=== PATIENT | female | born 1945 | race Caucasian/White ===

== ENCOUNTER 2016-09-19 21:43 | Observation (INO) | payer BC, OTHER ==
[~2016-09-19] VITALS: Ht 157.5 cm; Wt 98.6 kg
[~2016-09-19 21:43] MED LIST: ADVAIR 500/501 DISK IH; ALBUTEROL SULF8.5 GM IH; Advair 500/50 Diskus IH; CEFTIN250 MG PO; DULERA 200 MCG/13 GM IH; Flagyl PO; MULTIPLE VITAM1 EAC1 PO; NEURONTIN100 MG PO; PROAIR HFA8.5 GM IH; QUESTRAN PACKET4 GM PO; Questran PO; SILVADENE20 GM TP; TYLENOL WITH C1 EACH PO; VICODIN 5-3001 EACH PO; ZITHROMAX250 MG PO
[2016-09-19 22:14] LABS: HEMATOCRIT 36.9 % (36.0-46.0); MCH 23.8 PG (29.0-34.0); MCHC 31.4 G/DL (30.0-36.0); MCV 75.6 FL (83-99); MEAN PLAT.VOLUME 8.8 uM^3 (9.5-12.4); PLATELET COUNT 307 K/uL (156-360); RBC DIS.WIDTH-CV 15.3 % (11.8-14.6); RBC DIS.WIDTH-SD 41.8 % (39-53); RED BLOOD COUNT 4.88 M/uL (3.80-5.20); WHITE BLOOD COUNT 7.6 K/uL (4.1-10.2)
[2016-09-19 22:22] LABS: CHLORIDE 103 mEq/L (99-109); POTASSIUM 3.7 mEq/L (3.7-5.4); SODIUM 135 mEq/L (136-147)
[2016-09-19 22:24] LABS: GLUCOSE 82 mg/dL (70-99)
[2016-09-19 22:25] LABS: ANION GAP 11 MEQ/L (2-14)
[2016-09-19 22:28] LABS: GFR ESTIMATE (CALCULATED) > 59 mL/min/
[2016-09-19 22:29] LABS: UREA NITROGEN (BUN) 14 mg/dL (9-23)
[2016-09-19 22:30] LABS: D-DIMER ELISA 2.68 mg/L FEU (< 0.57)
[2016-09-19 22:36] LABS: TROP-I INTERPRETATION NEGATIVE; TROPONIN-I < 0.01 ng/mL (0.0-0.30)
[2016-09-19] MEDS ORDERED: PROAIR HFA8.5 GM IH (23:46)
[2016-09-19] MEDS ORDERED: DULERA 200 MCG/13 GM IH (23:46)
[2016-09-20] LABS: ADD MIUA? YES; BILIRUBIN NEGATIVE; BLOOD NEGATIVE; COLOR YELLOW ((YELLOW)); GLUCOSE (STRIP) NEGATIVE; KETONES NEGATIVE; LEUKOCYTES MODERATE; NITRITE NEGATIVE; PROTEIN (STRIP) NEGATIVE; UROBILINOGEN 0.2 MG/DL (0.2-1.0)
[2016-09-20 00:15] LABS: BACTERIA NONE SEEN /HPF; EPITHELIAL CELLS RARE /HPF; MUCUS TRACE /LPF; RED BLOOD CELLS 0-5 /HPF (0-5); UCUL ADDED? NO
[2016-09-20 00:27] LABS: SPECIFIC GRAVITY 1.071 (1.000-1.030)
[2016-09-20 01:55] VITALS: BP 109/55
[2016-09-20 05:45] LABS: TROP-I INTERPRETATION NEGATIVE; TROPONIN-I < 0.01 ng/mL (0.0-0.30)
[2016-09-20 05:53] LABS: HEMATOCRIT 32.7 % (36.0-46.0); MCH 23.9 PG (29.0-34.0); MCHC 31.2 G/DL (30.0-36.0); MCV 76.6 FL (83-99); MEAN PLAT.VOLUME 8.7 uM^3 (9.5-12.4); PLATELET COUNT 247 K/uL (156-360); RBC DIS.WIDTH-CV 15.2 % (11.8-14.6); RBC DIS.WIDTH-SD 42.3 % (39-53); RED BLOOD COUNT 4.27 M/uL (3.80-5.20); WHITE BLOOD COUNT 6.4 K/uL (4.1-10.2)
[2016-09-20 05:59] LABS: ALKALINE PHOSPHATASE 137 IU/L (3-129); ANION GAP 8 MEQ/L (2-14); CHLORIDE 103 MEQ/L (99-109); GFR ESTIMATE (CALCULATED) > 59 mL/min/; GLUCOSE 91 mg/dL (70-99); POTASSIUM 3.7 MEQ/L (3.7-5.4); SAMPLE HEMOLYSIS CHECK 0; SAMPLE ICTERIC CHECK 0; SAMPLE LIPEMIA CHECK 0; SODIUM 135 MEQ/L (136-147); TOTAL BILIRUBIN 0.4 MG/DL (0.0-1.0); UREA NITROGEN (BUN) 14 mg/dL (9-23)
[2016-09-20 06:50] LABS: IRON 33 MCG/DL (35-150)
[2016-09-20 07:58] LABS: FERRITIN 172 NG/ML (10-291)
[2016-09-20 09:00] VITALS: BP 115/56
[2016-09-20 11:30] VITALS: BP 118/64
[2016-09-20 11:53] LABS: TROP-I INTERPRETATION NEGATIVE; TROPONIN-I < 0.01 ng/mL (0.0-0.30)
[2016-09-20] MEDS ORDERED: ASPIR-LOW81 MG PO (14:46)
== END 2016-09-20 16:02 | disposition home or self-care (01) ==
LOC: EME 21:43 → EDOF 09-20 00:36 → 5WEST 09-20 01:32
PROVIDERS: Emergency Medicine; Internal Medicine
DX: R07.89 Other chest pain (principal); N39.0 Urinary tract infection, site not specified; I71.4 Abdominal aortic aneurysm, without rupture; R59.0 Localized enlarged lymph nodes; I71.2 Thoracic aortic aneurysm, without rupture; D50.9 Iron deficiency anemia, unspecified; J45.909 Unspecified asthma, uncomplicated; Z90.12 Acquired absence of left breast and nipple; Z85.3 Personal history of malignant neoplasm of breast
CPT/HCPCS: 71020; 71275; 80048; 80053; 81003; 82728; 83540; 84443; 84466; 84484; 85027; 85379; 93005; 99202; 99281; 99285; G0378; J0696; J1644; J7030; J7050

== ENCOUNTER 2016-10-04 22:03 | Emergency (ER) | payer BC, OTHER ==
[~2016-10-04] VITALS: Ht 160 cm; Wt 98.0 kg
[~2016-10-04 22:03] MED LIST changes: +ASPIR-LOW81 MG PO
[2016-10-04 23:11] LABS: CHLORIDE 103 mEq/L (99-109); HEMATOCRIT 34.7 % (36.0-46.0); MCH 23.1 PG (29.0-34.0); MCHC 30.8 G/DL (30.0-36.0); MCV 74.9 FL (83-99); PLATELET COUNT 258 K/uL (156-360); POTASSIUM 4.1 mEq/L (3.7-5.4); RBC DIS.WIDTH-SD 43.2 % (39-53); RED BLOOD COUNT 4.63 M/uL (3.80-5.20); SODIUM 136 mEq/L (136-147); WHITE BLOOD COUNT 6.5 K/uL (4.1-10.2)
[2016-10-04 23:13] LABS: GLUCOSE 110 mg/dL (70-99)
[2016-10-04 23:14] LABS: ANION GAP 11 MEQ/L (2-14)
[2016-10-04 23:17] LABS: GFR ESTIMATE (CALCULATED) > 59 mL/min/; UREA NITROGEN (BUN) 16 mg/dL (9-23)
[2016-10-04 23:23] LABS: TROP-I INTERPRETATION NEGATIVE; TROPONIN-I < 0.01 ng/mL (0.0-0.30)
[2016-10-05 01:55] LABS: ADD MIUA? YES; BILIRUBIN NEGATIVE; BLOOD NEGATIVE; COLOR AMBER ((YELLOW)); GLUCOSE (STRIP) NEGATIVE; KETONES 5; LEUKOCYTES TRACE; NITRITE NEGATIVE; PROTEIN (STRIP) 30; SPECIFIC GRAVITY 1.019 (1.000-1.030); UROBILINOGEN 0.2 MG/DL (0.2-1.0)
[2016-10-05 02:36] LABS: AMORPHOUS PHOSPHATE CRYSTALS 3+; BACTERIA NONE SEEN /HPF; CASTS NONE SEEN /LPF; CRYSTALS PRESENT; EPITHELIAL CELLS RARE /HPF; MUCUS NONE SEEN /LPF; RED BLOOD CELLS RARE /HPF (0-5); UCUL ADDED? NO; WHITE BLOOD CELLS 0-5 /HPF (0-5)
[2016-10-05] MEDS ORDERED: PERCOCET 5/31 TABLET PO (04:03)
[2016-10-05 04:24] VITALS: BP 109/57
[2016-10-06] MEDS ORDERED: ALFALFA1 EACH PO (11:16)
[2016-10-06] MEDS ORDERED: DULERA 200 MCG/13 GM IH (11:16)
[2016-10-06] MEDS ORDERED: DAILY VALUE1 EACH PO (11:16)
[2016-10-06] MEDS ORDERED: VITAMIN E400 UNIT PO (11:17)
[2016-10-06] MEDS ORDERED: RED YEAST RICE600 MG PO (11:17)
[2016-10-06] MEDS ORDERED: TRAMADOL HCL50 MG PO (11:17)
== END 2016-10-05 04:25 | disposition home or self-care (01) ==
LOC: EME 22:03
PROVIDERS: Emergency Medicine
DX: M54.9 Dorsalgia, unspecified (principal); R06.00 Dyspnea, unspecified
CPT/HCPCS: 71020; 74176; 80048; 81003; 83605; 84484; 85027; 87040; 93005; 94640; 99281; 99285; J3010; J7050

== ENCOUNTER → 2016-10-09 | Outpatient (CLI) | payer BC, OTHER ==
[~2016-10-09] MED LIST changes: +ALFALFA1 EACH PO; +DAILY VALUE1 EACH PO; +MOTRIN800 MG PO; +PERCOCET 5/31 TABLET PO; +RED YEAST RICE600 MG PO; +TRAMADOL HCL50 MG PO; +VITAMIN E400 UNIT PO
[2016-10-09 08:43] LABS: INTER. NORMALIZED RATIO 1.1; PROTHROMBIN TIME 11.7 (9.2-11.2); PTT 41.5 (25-32)
[2016-10-13 10:41] LABS: Flow Clinical Information NOT PROVIDED (()); Flow Number of Markers 22 (()); Flow Spec Viability 54 % (()); Flow Specimen Type LYMPH NODE (())
== END | disposition home or self-care (01) ==
LOC: OPR 07:58 → EDSTATUS 08:00
PROVIDERS: Radiology Diagnostic Radiology
DX: D48.7 Neoplasm of uncertain behavior of other specified sites (principal); C50.919 Malignant neoplasm of unspecified site of unspecified female breast; J45.909 Unspecified asthma, uncomplicated; Z82.49 Family history of ischemic heart disease and other diseases of the circulatory system; Z80.1 Family history of malignant neoplasm of trachea, bronchus and lung
CPT/HCPCS: 77012; 85610; 85730; 88184 90; 88185 90; 88189 90; 88305; 88341 TC; 88342 TC; J3010

== ENCOUNTER 2016-10-20 15:17 | Inpatient (IN) | payer BC, OTHER ==
[~2016-10-20] VITALS: Ht 157.5 cm; Wt 96.9 kg
[2016-10-20 15:59] LABS: EOSINOPHIL (%) 0 % (0-5); HEMATOCRIT 30.9 % (36.0-46.0); IMMATURE GRANULOCYTE (%) 0.5 % (0.0-0.7); INSTRUMENT ABS NEUTROPHIL CT 4.3 K/uL; LYMPHOCYTE COUNT 0.9 K/uL (1.0-2.8); MCH 22.8 PG (29.0-34.0); MCHC 30.4 G/DL (30.0-36.0); MCV 74.8 FL (83-99); MEAN PLAT.VOLUME 8.5 uM^3 (9.5-12.4); MONOCYTE (%) 16.7 % (3-12); NEUTROPHIL (%) 68.8 % (45-76); NEUTROPHIL COUNT 4.3 K/uL (1.8-6.4); PLATELET COUNT 298 K/uL (156-360); RBC DIS.WIDTH-CV 17.2 % (11.8-14.6); RBC DIS.WIDTH-SD 46.1 % (39-53); RED BLOOD COUNT 4.13 M/uL (3.80-5.20); WHITE BLOOD COUNT 6.2 K/uL (4.1-10.2)
[2016-10-20 16:00] LABS: CHLORIDE 99 mEq/L (99-109); POTASSIUM 3.9 mEq/L (3.7-5.4); SODIUM 132 mEq/L (136-147)
[2016-10-20 16:02] LABS: GLUCOSE 98 mg/dL (70-99)
[2016-10-20 16:03] LABS: ANION GAP 11 MEQ/L (2-14)
[2016-10-20 16:06] LABS: GFR ESTIMATE (CALCULATED) > 59 mL/min/
[2016-10-20 16:07] LABS: UREA NITROGEN (BUN) 12 mg/dL (9-23)
[2016-10-20 16:09] LABS: TROP-I INTERPRETATION NEGATIVE; TROPONIN-I < 0.01 ng/mL (0.0-0.30)
[2016-10-20] MEDS ORDERED: TRAMADOL HCL50 MG PO (18:47)
[2016-10-20 22:31] VITALS: BP 127/69
[2016-10-21 03:06] VITALS: BP 120/65
[2016-10-21 05:59] LABS: HEMATOCRIT 30.9 % (36.0-46.0); MCH 22.8 PG (29.0-34.0); MCHC 30.1 G/DL (30.0-36.0); MCV 75.7 FL (83-99); MEAN PLAT.VOLUME 8.9 uM^3 (9.5-12.4); PLATELET COUNT 218 K/uL (156-360); RBC DIS.WIDTH-CV 17.1 % (11.8-14.6); RBC DIS.WIDTH-SD 45.9 % (39-53); RED BLOOD COUNT 4.08 M/uL (3.80-5.20)
[2016-10-21 06:01] LABS: CHLORIDE 102 mEq/L (99-109); POTASSIUM 4.3 mEq/L (3.7-5.4); SODIUM 137 mEq/L (136-147)
[2016-10-21 06:04] LABS: ANION GAP 10 MEQ/L (2-14)
[2016-10-21 06:06] LABS: GFR ESTIMATE (CALCULATED) > 59 mL/min/
[2016-10-21 06:07] LABS: UREA NITROGEN (BUN) 11 mg/dL (9-23)
[2016-10-21 06:21] LABS: GLUCOSE 217 mg/dL (70-99)
[2016-10-21 15:41] VITALS: BP 121/61
[2016-10-21 17:38] VITALS: BP 149/67
[2016-10-21 19:15] VITALS: BP 120/57
[2016-10-21 23:14] VITALS: BP 105/58
[2016-10-22 06:42] LABS: EOSINOPHIL (%) 0 % (0-5); HEMATOCRIT 28.9 % (36.0-46.0); IMMATURE GRANULOCYTE (%) 0.5 % (0.0-0.7); IMMATURE GRANULOCYTE COUNT 0.1 K/uL; INSTRUMENT ABS NEUTROPHIL CT 8.3 K/uL; LYMPHOCYTE COUNT 0.5 K/uL (1.0-2.8); MCHC 30.1 G/DL (30.0-36.0); MCV 76.5 FL (83-99); MONOCYTE (%) 8.1 % (3-12); MONOCYTE COUNT 0.8 K/uL (0-0.8); NEUTROPHIL (%) 86.1 % (45-76); NEUTROPHIL COUNT 8.3 K/uL (1.8-6.4); PLATELET COUNT 255 K/uL (156-360); RBC DIS.WIDTH-CV 17.2 % (11.8-14.6); RBC DIS.WIDTH-SD 47.3 % (39-53); RED BLOOD COUNT 3.78 M/uL (3.80-5.20); WHITE BLOOD COUNT 9.6 K/uL (4.1-10.2)
[2016-10-22 07:05] LABS: ALKALINE PHOSPHATASE 220 IU/L (3-129); ANION GAP 11 MEQ/L (2-14); CHLORIDE 104 MEQ/L (99-109); GFR ESTIMATE (CALCULATED) > 59 mL/min/; GLUCOSE 131 mg/dL (70-99); POTASSIUM 4.1 MEQ/L (3.7-5.4); SAMPLE HEMOLYSIS CHECK 0; SAMPLE ICTERIC CHECK 0; SAMPLE LIPEMIA CHECK 0; SODIUM 141 MEQ/L (136-147); TOTAL BILIRUBIN 0.5 MG/DL (0.0-1.0); UREA NITROGEN (BUN) 15 mg/dL (9-23)
[2016-10-22 07:55] VITALS: BP 113/55
[2016-10-22] MEDS ORDERED: LIDOCAINE700 MG TD (08:34)
[2016-10-22] MEDS ORDERED: AZITHROMYCIN500 M1 PO (08:34)
[2016-10-22] MEDS ORDERED: FERROUS SULFAT325 MG PO (08:35)
[2016-10-22] MEDS ORDERED: Vitamin-E PO (08:35)
[2016-10-22] MEDS ORDERED: MONTELUKAST SOD10 MG PO (08:35)
[2016-10-22] MEDS ORDERED: PREDNISONE10 MG PO (08:36)
== END 2016-10-22 10:20 | disposition home or self-care (01) | DRG 202 ==
LOC: EME 15:17 → EDOF 18:19 → 5EAST 18:19
PROVIDERS: Emergency Medicine; Hospitalist; Internal Medicine
DX: J45.31 Mild persistent asthma with (acute) exacerbation (principal); C81.90 Hodgkin lymphoma, unspecified, unspecified site; D50.9 Iron deficiency anemia, unspecified; R09.02 Hypoxemia; J44.1 Chronic obstructive pulmonary disease with (acute) exacerbation; Z85.3 Personal history of malignant neoplasm of breast; Z90.10 Acquired absence of unspecified breast and nipple; M54.9 Dorsalgia, unspecified; R61 Generalized hyperhidrosis; Z90.12 Acquired absence of left breast and nipple; E87.1 Hypo-osmolality and hyponatremia
CPT/HCPCS: 71010; 71275; 80048; 80053; 84484; 85025; 85027; 93005; 94640; 94640 76; 94799; 99202; 99281; 99285; J2930; J7030; J7512

== ENCOUNTER → 2016-10-21 | Outpatient (CLI) | payer BC, OTHER ==
[~2016-10-21] MED LIST changes: +AZITHROMYCIN500 M1 PO; +FERROUS SULFAT325 MG PO; +LIDOCAINE700 MG TD; +MONTELUKAST SOD10 MG PO; +PREDNISONE10 MG PO; +Vitamin-E PO
== END | disposition home or self-care (01) ==
LOC: OPR 08:00 → EDSTATUS 08:00 → OPR 08:10
DX: C81.92 Hodgkin lymphoma, unspecified, intrathoracic lymph nodes (principal); Z85.3 Personal history of malignant neoplasm of breast; J45.909 Unspecified asthma, uncomplicated; Z80.1 Family history of malignant neoplasm of trachea, bronchus and lung; Z82.49 Family history of ischemic heart disease and other diseases of the circulatory system
CPT/HCPCS: 77012; 88305; J3010

== ENCOUNTER 2016-11-03 19:06 | Inpatient (IN) | payer BC, OTHER ==
[~2016-11-03] VITALS: Ht 160 cm; Wt 95.0 kg
[2016-11-03 19:55] LABS: HEMATOCRIT 27.2 % (36.0-46.0); MCH 22.8 PG (29.0-34.0); MCHC 30.5 G/DL (30.0-36.0); MCV 74.7 FL (83-99); RBC DIS.WIDTH-CV 18.1 % (11.8-14.6); RBC DIS.WIDTH-SD 48.6 % (39-53); RED BLOOD COUNT 3.64 M/uL (3.80-5.20); WHITE BLOOD COUNT 5.3 K/uL (4.1-10.2)
[2016-11-03 20:13] LABS: MEAN PLAT.VOLUME 9.8 uM^3 (9.5-12.4); PLATELET COUNT 191 K/uL (156-360)
[2016-11-03 20:15] LABS: CHLORIDE 98 mEq/L (99-109); POTASSIUM 3.9 mEq/L (3.7-5.4)
[2016-11-03 20:16] LABS: GLUCOSE 100 mg/dL (70-99)
[2016-11-03 20:17] LABS: SODIUM 131 mEq/L (136-147)
[2016-11-03 20:18] LABS: ANION GAP 11 MEQ/L (2-14)
[2016-11-03 20:19] LABS: TROP-I INTERPRETATION NEGATIVE; TROPONIN-I < 0.01 ng/mL (0.0-0.30)
[2016-11-03 20:20] LABS: GFR ESTIMATE (CALCULATED) > 59 mL/min/
[2016-11-03 20:21] LABS: UREA NITROGEN (BUN) 10 mg/dL (9-23)
[2016-11-03 20:44] LABS: ADD MIUA? YES; BILIRUBIN SMALL; BLOOD NEGATIVE; COLOR AMBER ((YELLOW)); GLUCOSE (STRIP) NEGATIVE; KETONES NEGATIVE; LEUKOCYTES NEGATIVE; NITRITE NEGATIVE; PROTEIN (STRIP) 100; SPECIFIC GRAVITY 1.017 (1.000-1.030)
[2016-11-03 20:52] LABS: BACTERIA RARE /HPF; CALCIUM OXALATE CRYSTALS 2+ /HPF; EPITHELIAL CELLS 1+ /HPF; HYALINE CASTS 0-5 /LPF; MUCUS TRACE /LPF; RED BLOOD CELLS 0-5 /HPF (0-5); UCUL ADDED? NO; WHITE BLOOD CELLS 0-5 /HPF (0-5)
[2016-11-03] MEDS ORDERED: FERROUS SULFAT325 MG PO (23:37)
[2016-11-03] MEDS ORDERED: VITAMIN E400 UNIT PO (23:38)
[2016-11-03] MEDS ORDERED: LIDOCAINE700 MG TD (23:38)
[2016-11-04] VITALS (12 sets, daily range): BP systolic 108–137; BP diastolic 51–111
[2016-11-04 08:12] LABS: C-REACTIVE PROTEIN 222.2 MG/L (0-10)
[2016-11-04 08:15] LABS: TROP-I INTERPRETATION NEGATIVE; TROPONIN-I < 0.01 ng/mL (0.0-0.30)
[2016-11-04 08:32] LABS: HEMATOCRIT 24.9 % (36.0-46.0); MCH 23.9 PG (29.0-34.0); MCHC 31.3 G/DL (30.0-36.0); MCV 76.1 FL (83-99); MEAN PLAT.VOLUME 9.9 uM^3 (9.5-12.4); PLATELET COUNT 150 K/uL (156-360); RBC DIS.WIDTH-CV 18.4 % (11.8-14.6); RBC DIS.WIDTH-SD 50.3 % (39-53); RED BLOOD COUNT 3.27 M/uL (3.80-5.20); WHITE BLOOD COUNT 4.4 K/uL (4.1-10.2)
[2016-11-04 08:42] LABS: ANION GAP 10 MEQ/L (2-14); CHLORIDE 103 MEQ/L (99-109); GFR ESTIMATE (CALCULATED) > 59 mL/min/; GLUCOSE 116 mg/dL (70-99); POTASSIUM 3.5 MEQ/L (3.7-5.4); SODIUM 135 MEQ/L (136-147); UREA NITROGEN (BUN) 11 mg/dL (9-23)
[2016-11-04 13:55] LABS: TROP-I INTERPRETATION NEGATIVE; TROPONIN-I < 0.01 ng/mL (0.0-0.30)
[2016-11-04 15:13] LABS: MCV 76.4 FL (83-99)
[2016-11-04 17:03] LABS: INTER. NORMALIZED RATIO 1.5; PROTHROMBIN TIME 15.7 (9.2-11.2); PTT 38.3 (25-32)
[2016-11-04 19:48] LABS: HEMATOCRIT 23.7 % (36.0-46.0); MCV 75.7 FL (83-99)
[2016-11-04 20:39] LABS: INTERNAL CONTROL VALID? YES
[2016-11-04 22:47] LABS: C DIFF TOXIN NEGATIVE (NEGATIVE)
[2016-11-04 22:49] LABS: PROBE CHECK PASS; SPECIMEN PROCESSING CONTROL PASS
[2016-11-05] VITALS (8 sets, daily range): BP systolic 98–149; BP diastolic 50–69
[2016-11-05 01:28] LABS: HEMATOCRIT 30.4 % (36.0-46.0); MCV 77.2 FL (83-99)
[2016-11-05 08:43] LABS: HEMATOCRIT 26.1 % (36.0-46.0); MCV 77.7 FL (83-99)
[2016-11-05 08:47] LABS: HEMATOCRIT 26.2 % (36.0-46.0); MCH 24.6 PG (29.0-34.0); MCHC 31.7 G/DL (30.0-36.0); MCV 77.7 FL (83-99); MEAN PLAT.VOLUME 9.4 uM^3 (9.5-12.4); PLATELET COUNT 116 K/uL (156-360); RBC DIS.WIDTH-CV 17.9 % (11.8-14.6); RBC DIS.WIDTH-SD 50.7 % (39-53); RED BLOOD COUNT 3.37 M/uL (3.80-5.20); WHITE BLOOD COUNT 4.1 K/uL (4.1-10.2)
[2016-11-05 09:29] LABS: EOSINOPHIL (%) 0 % (0-5); INSTRUMENT ABS NEUTROPHIL CT 3.3 K/uL; LYMPHOCYTE COUNT 0.3 K/uL (1.0-2.8); MONOCYTE (%) 9.9 % (3-12); MONOCYTE COUNT 0.4 K/uL (0-0.8); NEUTROPHIL (%) 82.5 % (45-76); NEUTROPHIL COUNT 3.3 K/uL (1.8-6.4)
[2016-11-05 10:30] LABS: ANION GAP 9 MEQ/L (2-14); CHLORIDE 106 MEQ/L (99-109); GFR ESTIMATE (CALCULATED) > 59 mL/min/; POTASSIUM 3.5 MEQ/L (3.7-5.4); SAMPLE HEMOLYSIS CHECK 0; SAMPLE ICTERIC CHECK 0; SAMPLE LIPEMIA CHECK 0; SODIUM 134 MEQ/L (136-147); UREA NITROGEN (BUN) 7 mg/dL (9-23)
[2016-11-05 10:33] LABS: GLUCOSE 83 mg/dL (70-99)
[2016-11-05 13:20] LABS: MAGNESIUM 1.5 mg/dl (1.3-2.7)
[2016-11-05 15:50] LABS: HEMATOCRIT 30.4 % (36.0-46.0); MCV 77.9 FL (83-99)
[2016-11-05 21:37] LABS: HEMATOCRIT 28.8 % (36.0-46.0); MCV 77.6 FL (83-99)
[2016-11-06] VITALS (7 sets, daily range): BP systolic 109–180; BP diastolic 53–100
[2016-11-06 03:42] LABS: HEMATOCRIT 27.1 % (36.0-46.0); MCV 76.8 FL (83-99)
[2016-11-06 11:03] LABS: HEMATOCRIT 29.7 % (36.0-46.0); MCH 24.9 PG (29.0-34.0); MCHC 31.6 G/DL (30.0-36.0); MCV 78.8 FL (83-99); MEAN PLAT.VOLUME 9.2 uM^3 (9.5-12.4); PLATELET COUNT 135 K/uL (156-360); RBC DIS.WIDTH-CV 18.5 % (11.8-14.6); RBC DIS.WIDTH-SD 53.1 % (39-53); RED BLOOD COUNT 3.77 M/uL (3.80-5.20); WHITE BLOOD COUNT 4.1 K/uL (4.1-10.2)
[2016-11-06 11:51] LABS: ANION GAP 10 MEQ/L (2-14); CHLORIDE 101 MEQ/L (99-109); GFR ESTIMATE (CALCULATED) > 59 mL/min/; GLUCOSE 96 mg/dL (70-99); SAMPLE HEMOLYSIS CHECK 0; SAMPLE ICTERIC CHECK 0; SAMPLE LIPEMIA CHECK 0; SODIUM 134 MEQ/L (136-147); UREA NITROGEN (BUN) 8 mg/dL (9-23)
[2016-11-06 11:52] LABS: POTASSIUM 4.4 MEQ/L (3.7-5.4)
[2016-11-07 00:39] LABS: MCV 77.1 FL (83-99)
[2016-11-07 02:03] VITALS: BP 96/70
[2016-11-07 02:39] VITALS: BP 90/52
[2016-11-07 03:48] VITALS: BP 119/57
[2016-11-07 06:31] LABS: HEMATOCRIT 25.6 % (36.0-46.0); MCV 78.3 FL (83-99)
[2016-11-07 08:39] VITALS: BP 123/59
[2016-11-07 09:38] LABS: HEMATOCRIT 27.6 % (36.0-46.0); MCH 24.1 PG (29.0-34.0); MCHC 30.8 G/DL (30.0-36.0); MCV 78.2 FL (83-99); RBC DIS.WIDTH-CV 18.7 % (11.8-14.6); RBC DIS.WIDTH-SD 53.8 % (39-53); RED BLOOD COUNT 3.53 M/uL (3.80-5.20); WHITE BLOOD COUNT 2.9 K/uL (4.1-10.2)
[2016-11-07 09:51] LABS: ALKALINE PHOSPHATASE 249 IU/L (3-129); ANION GAP 11 MEQ/L (2-14); CHLORIDE 104 MEQ/L (99-109); GFR ESTIMATE (CALCULATED) > 59 mL/min/; POTASSIUM 4.1 MEQ/L (3.7-5.4); SAMPLE HEMOLYSIS CHECK 0; SAMPLE ICTERIC CHECK 0; SAMPLE LIPEMIA CHECK 0; SODIUM 136 MEQ/L (136-147); TOTAL BILIRUBIN 1.1 MG/DL (0.0-1.0); UREA NITROGEN (BUN) 12 mg/dL (9-23)
[2016-11-07 09:56] LABS: GLUCOSE 235 mg/dL (70-99)
[2016-11-07 12:25] LABS: HEMATOCRIT 27.4 % (36.0-46.0); MCV 78.1 FL (83-99)
[2016-11-07 13:11] LABS: EOSINOPHIL (%) 0 % (0-5); INSTRUMENT ABS NEUTROPHIL CT 2.6 K/uL; LYMPHOCYTE COUNT 0.2 K/uL (1.0-2.8); MEAN PLAT.VOLUME 9.8 uM^3 (9.5-12.4); MONOCYTE (%) 4.5 % (3-12); MONOCYTE COUNT 0.1 K/uL (0-0.8); NEUTROPHIL (%) 88.3 % (45-76); NEUTROPHIL COUNT 2.6 K/uL (1.8-6.4); PLAT.SUFFICIENCY DECREASED; PLATELET COUNT 90 K/uL (156-360)
[2016-11-07 15:38] VITALS: BP 113/56
[2016-11-07 16:43] LABS: HEMATOCRIT 25.8 % (36.0-46.0); MCV 77.9 FL (83-99)
[2016-11-07 22:04] LABS: HEMATOCRIT 23.7 % (36.0-46.0); MCV 77.7 FL (83-99)
[2016-11-07 22:59] VITALS: BP 106/56
[2016-11-08] VITALS (10 sets, daily range): BP systolic 116–124; BP diastolic 58–68
[2016-11-08 05:47] LABS: EOSINOPHIL (%) 0 % (0-5); HEMATOCRIT 24.2 % (36.0-46.0); INSTRUMENT ABS NEUTROPHIL CT 2.6 K/uL; LYMPHOCYTE COUNT 0.1 K/uL (1.0-2.8); MCH 24.3 PG (29.0-34.0); MCV 78.3 FL (83-99); MEAN PLAT.VOLUME 9.9 uM^3 (9.5-12.4); MONOCYTE (%) 3.8 % (3-12); MONOCYTE COUNT 0.1 K/uL (0-0.8); NEUTROPHIL (%) 91.7 % (45-76); NEUTROPHIL COUNT 2.6 K/uL (1.8-6.4); PLATELET COUNT 75 K/uL (156-360); RBC DIS.WIDTH-CV 19.1 % (11.8-14.6); RED BLOOD COUNT 3.09 M/uL (3.80-5.20); WHITE BLOOD COUNT 2.9 K/uL (4.1-10.2)
[2016-11-08 07:43] LABS: ALKALINE PHOSPHATASE 260 IU/L (3-129); ANION GAP 7 MEQ/L (2-14); CHLORIDE 105 MEQ/L (99-109); GFR ESTIMATE (CALCULATED) > 59 mL/min/; GLUCOSE 171 mg/dL (70-99); POTASSIUM 4.2 MEQ/L (3.7-5.4); SAMPLE HEMOLYSIS CHECK 0; SAMPLE ICTERIC CHECK 0; SAMPLE LIPEMIA CHECK 0; SODIUM 136 MEQ/L (136-147); TOTAL BILIRUBIN 1.2 MG/DL (0.0-1.0); UREA NITROGEN (BUN) 17 mg/dL (9-23)
[2016-11-09 00:46] LABS: HEMATOCRIT 29.1 % (36.0-46.0); MCV 78.2 FL (83-99)
[2016-11-09 06:00] LABS: HEMATOCRIT 28.5 % (36.0-46.0); MCH 25.8 PG (29.0-34.0); MCHC 32.6 G/DL (30.0-36.0); MCV 78.9 FL (83-99); MEAN PLAT.VOLUME 10.7 uM^3 (9.5-12.4); PLATELET COUNT 73 K/uL (156-360); RBC DIS.WIDTH-CV 18.5 % (11.8-14.6); RBC DIS.WIDTH-SD 53.4 % (39-53); RED BLOOD COUNT 3.61 M/uL (3.80-5.20); WHITE BLOOD COUNT 2.9 K/uL (4.1-10.2)
[2016-11-09 09:11] LABS: HEMATOCRIT 32.2 % (36.0-46.0); MCV 79.1 FL (83-99)
[2016-11-09 09:12] VITALS: BP 128/63
[2016-11-09 16:00] VITALS: BP 130/94
[2016-11-09 23:48] VITALS: BP 120/57
[2016-11-10 00:43] LABS: HEMATOCRIT 33.3 % (36.0-46.0); MCV 79.5 FL (83-99)
[2016-11-10 01:19] VITALS: BP 116/59
[2016-11-10 06:59] LABS: HEMATOCRIT 30.8 % (36.0-46.0); MCH 24.9 PG (29.0-34.0); MCHC 31.2 G/DL (30.0-36.0); MCV 79.8 FL (83-99); MEAN PLAT.VOLUME 9.7 uM^3 (9.5-12.4); PLATELET COUNT 55 K/uL (156-360); RBC DIS.WIDTH-CV 18.7 % (11.8-14.6); RBC DIS.WIDTH-SD 54.6 % (39-53); RED BLOOD COUNT 3.86 M/uL (3.80-5.20)
[2016-11-10 07:24] LABS: WHITE BLOOD COUNT 1.2 K/uL (4.1-10.2)
[2016-11-10 07:56] VITALS: BP 96/52
[2016-11-10 10:57] LABS: ABS NEUTROPHIL COUNT 1.1; BAND NEUTROPHILS 2.7 % (0-8.0); EOSINOPHIL ABS CT 0; EOSINOPHILS 0.9 % (0-5.0); INSTRUMENT ABS NEUTROPHIL CT 1.1 K/uL; LYMPHOCYTES 5.5 % (15.0-45.0); NUCLEATED RBC'S 1.8; SEG.NEUTROPHILS 90.9 % (46.0-76.0); SMUDGE CELLS 2.7
[2016-11-10 12:51] LABS: HEMATOCRIT 28.7 % (36.0-46.0); MCV 80.4 FL (83-99)
[2016-11-10] MEDS ORDERED: LOVENOX100 MG/1 M SC (14:03)
[2016-11-12 08:36] LABS: POC NON-PRINT COM 1 ND
== END 2016-11-10 15:48 | disposition home or self-care (01) | DRG 864 ==
LOC: EME 19:06 → EDOF 11-04 01:43 → 5EAST 11-04 02:05 → EDOF 11-04 02:05 → 5SOUTH 11-04 02:05 → 5EAST 11-06 14:52
PROVIDERS: Emergency Medicine; Hospitalist; Internal Medicine; Internal Medicine Hematology & Oncology; Orthopaedic Surgery; Physician Assistant Medical
PROC: 30233N1 Transfusion of Nonautologous Red Blood Cells into Peripheral Vein, Percutaneous Approach (ICD-10-PCS; principal; 2016-11-04)
PROC: B548ZZA Ultrasonography of Superior Vena Cava, Guidance (ICD-10-PCS; 2016-11-06)
PROC: B5181ZA Fluoroscopy of Superior Vena Cava using Low Osmolar Contrast, Guidance (ICD-10-PCS; 2016-11-06)
PROC: 02HV33Z Insertion of Infusion Device into Superior Vena Cava, Percutaneous Approach (ICD-10-PCS; 2016-11-06)
PROC: 3E04305 Introduction of Other Antineoplastic into Central Vein, Percutaneous Approach (ICD-10-PCS; 2016-11-06)
DX: R50.9 Fever, unspecified (principal); I82.431 Acute embolism and thrombosis of right popliteal vein; D61.818 Other pancytopenia; C81.90 Hodgkin lymphoma, unspecified, unspecified site; I82.491 Acute embolism and thrombosis of other specified deep vein of right lower extremity; R11.2 Nausea with vomiting, unspecified; M54.5 Low back pain; R10.13 Epigastric pain; D50.8 Other iron deficiency anemias; C81.73 Other Hodgkin lymphoma, intra-abdominal lymph nodes; E66.9 Obesity, unspecified; J45.30 Mild persistent asthma, uncomplicated; R53.1 Weakness; I87.8 Other specified disorders of veins; Z85.3 Personal history of malignant neoplasm of breast; Z68.37 Body mass index [BMI] 37.0-37.9, adult; Z90.12 Acquired absence of left breast and nipple
CPT/HCPCS: 71010; 71275; 74177; 80048; 80048 91; 80053; 80202; 81003; 82272; 83735; 84484; 85014; 85018; 85025; 85027; 85610; 85730; 86140; 86900; 86901; 86920; 87040; 87493; 93005; 93306; 93970; 94010; 94640; 94640 76; 94799; 99202; 99281; 99285; J0690; J0696; J1100; J1200; J1453; J1644; J1650; J2250; J2270; J2405; J2469; J3010; J3370; J7030; J7040; J7050; J9000; J9040; J9130; J9360; P9016; Q0164; S0020

== ENCOUNTER → 2016-12-04 | Outpatient (CLI) | payer BC, OTHER ==
[~2016-12-04] MED LIST changes: +LOVENOX100 MG/1 M SC
== END | disposition home or self-care (01) ==
LOC: RES 08:00
DX: R94.2 Abnormal results of pulmonary function studies (principal)
CPT/HCPCS: 94060; 94727; 94729

== ENCOUNTER → 2017-06-18 | Outpatient (CLI) | payer BC, OTHER ==
[~2017-06-18] MED LIST changes: +METOCLOPRAMIDE10 MG PO; +XARELTO10 MG PO
== END | disposition home or self-care (01) ==
LOC: AMB 10:28
PROC: 0JPT3WZ Removal of Totally Implantable Vascular Access Device from Trunk Subcutaneous Tissue and Fascia, Percutaneous Approach (ICD-10-PCS; principal; 2017-06-18)
PROC: 02PYX3Z Removal of Infusion Device from Great Vessel, External Approach (ICD-10-PCS; principal; 2017-06-18)
DX: Z45.2 Encounter for adjustment and management of vascular access device (principal); I87.8 Other specified disorders of veins; Z92.21 Personal history of antineoplastic chemotherapy

== ENCOUNTER 2017-06-24 11:51 | Observation (INO) | payer BC, OTHER ==
[~2017-06-24] VITALS: Ht 160 cm; Wt 90.6 kg
[2017-06-24 12:25] LABS: APPEARANCE CLEAR ((CLEAR)); BILIRUBIN NEGATIVE; BLOOD NEGATIVE; COLOR STRAW ((YELLOW)); GLUCOSE (STRIP) NEGATIVE; KETONES NEGATIVE; LEUKOCYTES NEGATIVE; NITRITE NEGATIVE; PROTEIN (STRIP) NEGATIVE; SPECIFIC GRAVITY 1.004 (1.000-1.030); UCUL ADDED? NO; UROBILINOGEN 0.2 MG/DL (0.2-1.0)
[2017-06-24 12:28] LABS: HEMATOCRIT 41.9 % (36.0-46.0); HEMOGLOBIN 14.5 G/DL (11.9-15.5); MCH 28.9 PG (29.0-34.0); MCHC 34.6 G/DL (30.0-36.0); MCV 83.6 FL (83-99); PLATELET COUNT 240 K/uL (156-360); RBC DIS.WIDTH-CV 13.8 % (11.8-14.6); RBC DIS.WIDTH-SD 42.1 % (39-53); RED BLOOD COUNT 5.01 M/uL (3.80-5.20); WHITE BLOOD COUNT 7.9 K/uL (4.1-10.2)
[2017-06-24 12:40] LABS: CHLORIDE 109 mEq/L (99-109); SODIUM 140 mEq/L (136-147)
[2017-06-24 12:41] LABS: GLUCOSE 96 mg/dL (70-99)
[2017-06-24 12:45] LABS: CREATININE 0.7 mg/dL (0.6-1.3); GFR ESTIMATE (CALCULATED) > 59 mL/min/
[2017-06-24 12:46] LABS: UREA NITROGEN (BUN) 14 mg/dL (9-23)
[2017-06-24 12:50] LABS: TROP-I INTERPRETATION NEGATIVE; TROPONIN-I 0.01 ng/mL (0.0-0.30)
[2017-06-24 13:20] LABS: ABS NEUTROPHIL COUNT 5.2; ANISOCYTOSIS 1+; ATYPICAL LYMPHOCYTE 16.4 %; EOSINOPHIL ABS CT 0.2; EOSINOPHILS 2.6 % (0-5.0); LYMPHOCYTES 10.3 % (15.0-45.0); MICROCYTOSIS 1+; MONOCYTES 5.2 % (0-9.0); PLAT.SUFFICIENCY ADEQUATE; POIKILOCYTOSIS 1+; SEG.NEUTROPHILS 65.5 % (46.0-76.0)
[2017-06-24] MEDS ORDERED: ATIVAN0.5 MG PO (15:06)
[2017-06-24] MEDS ORDERED: [UNRECOGNIZED DRUG - REMARK] PO (15:07)
[2017-06-24] MEDS ORDERED: DUREZOL 0.100 DROP/5 RIGHT EYE (15:07)
[2017-06-24] MEDS ORDERED: ILEVRO1.7 ML RIGHT EYE (15:07)
[2017-06-24 15:32] LABS: HDL CHOLESTEROL 45 MG/DL (Desirable>=50); LDL CHOLESTEROL 141 mg/dL (Desirable<100); NON-HDL CHOLESTEROL 184 mg/dL (Desirable<160); TOTAL CHOLESTEROL 229 mg/dL (Desirable<200); TRIGLYCERIDES 214 MG/DL (Normal: <150)
[2017-06-24 16:18] VITALS: BP 120/71
[2017-06-24 20:15] VITALS: BP 122/65
[2017-06-24 23:43] VITALS: BP 121/53
[2017-06-25 04:01] VITALS: BP 106/56
[2017-06-25 09:31] VITALS: BP 104/53
[2017-06-25] MEDS ORDERED: ASPIR-LOW81 MG PO (11:22)
[2017-06-25] MEDS ORDERED: ATORVASTATIN CA40 MG PO (11:22)
[2017-06-25 12:06] VITALS: BP 95/51
== END 2017-06-25 17:00 | disposition home or self-care (01) ==
LOC: EME 11:51 → ENRESERV 14:23 → 5WEST 14:27 → EDOF 14:27 → ENRESERV 14:30 → 5WEST 16:13
PROVIDERS: Emergency Medicine; Physician Assistant Medical
DX: G45.9 Transient cerebral ischemic attack, unspecified (principal); J45.20 Mild intermittent asthma, uncomplicated; F41.9 Anxiety disorder, unspecified; Z85.71 Personal history of Hodgkin lymphoma; Z85.3 Personal history of malignant neoplasm of breast; Z92.21 Personal history of antineoplastic chemotherapy; R11.0 Nausea
CPT/HCPCS: 70450; 70551; 71045; 72141; 80048; 80061; 81003; 83036; 84484; 85025; 93005; 93880; 94640; 94640 76; 99202; 99281; 99284; G0378; J1650

== ENCOUNTER 2017-09-07 18:59 | Emergency (ER) | payer BC, OTHER ==
[~2017-09-07] VITALS: Ht 157.5 cm; Wt 87.2 kg
[~2017-09-07 18:59] MED LIST changes: +ATIVAN0.5 MG PO; +ATORVASTATIN CA40 MG PO; +DUREZOL 0.100 DROP/5 RIGHT EYE; +ILEVRO1.7 ML RIGHT EYE; +[UNRECOGNIZED DRUG - REMARK] PO
[2017-09-07 19:36] LABS: HEMATOCRIT 41.1 % (36.0-46.0); MCH 27.9 PG (29.0-34.0); MCHC 34.1 G/DL (30.0-36.0); PLATELET COUNT 214 K/uL (156-360); RBC DIS.WIDTH-CV 13.9 % (11.8-14.6); RBC DIS.WIDTH-SD 40.9 % (39-53); RED BLOOD COUNT 5.01 M/uL (3.80-5.20)
[2017-09-07 19:48] LABS: CHLORIDE 110 mEq/L (99-109); POTASSIUM 3.8 mEq/L (3.7-5.4); SODIUM 143 mEq/L (136-147)
[2017-09-07 19:49] LABS: GLUCOSE 97 mg/dL (70-99)
[2017-09-07 19:53] LABS: CREATININE 0.7 mg/dL (0.6-1.3); GFR ESTIMATE (CALCULATED) > 59 mL/min/
[2017-09-07 19:54] LABS: UREA NITROGEN (BUN) 15 mg/dL (9-23)
[2017-09-07 19:59] LABS: TROP-I INTERPRETATION NEGATIVE; TROPONIN-I < 0.01 ng/mL (0.0-0.30)
[2017-09-07 21:20] VITALS: BP 106/69
== END 2017-09-07 21:24 | disposition home or self-care (01) ==
LOC: EME → EDBD 18:59 → EME 21:24
PROVIDERS: Emergency Medicine Emergency Medical Services
DX: R07.9 Chest pain, unspecified (principal); F41.9 Anxiety disorder, unspecified; Z85.72 Personal history of non-Hodgkin lymphomas; J45.909 Unspecified asthma, uncomplicated; Z90.12 Acquired absence of left breast and nipple
CPT/HCPCS: 71046; 80048; 83880; 84484; 85027; 85379; 93005; 99281; 99284

== ENCOUNTER 2017-10-03 13:08 | Inpatient (IN) | payer BC, OTHER ==
[~2017-10-03] VITALS: Ht 157.5 cm; Wt 88.5 kg
[2017-10-03 13:58] LABS: HEMATOCRIT 42.3 % (36.0-46.0); HEMOGLOBIN 14.8 G/DL (11.9-15.5); MCV 80.1 FL (83-99); PLATELET COUNT 245 K/uL (156-360); RBC DIS.WIDTH-CV 13.5 % (11.8-14.6); RBC DIS.WIDTH-SD 38.9 % (39-53); RED BLOOD COUNT 5.28 M/uL (3.80-5.20)
[2017-10-03 14:06] LABS: ALBUMIN 4.2 g/dL (3.2-4.8)
[2017-10-03 14:07] LABS: CHLORIDE 108 mEq/L (99-109); POTASSIUM 3.7 mEq/L (3.7-5.4); SODIUM 140 mEq/L (136-147)
[2017-10-03 14:09] LABS: GLUCOSE 96 mg/dL (70-99); TOTAL PROTEIN 7.2 g/dL (6.4-8.3)
[2017-10-03 14:11] LABS: TOTAL BILIRUBIN 0.7 mg/dL (0.0-1.0)
[2017-10-03 14:12] LABS: ALKALINE PHOSPHATASE 107 IU/L (3-129)
[2017-10-03 14:13] LABS: CREATININE 0.7 mg/dL (0.6-1.3); GFR ESTIMATE (CALCULATED) > 59 mL/min/
[2017-10-03 14:14] LABS: AST (GOT) 25 IU/L (2-34); UREA NITROGEN (BUN) 10 mg/dL (9-23)
[2017-10-03 14:15] LABS: ALT (GPT) 25 IU/L (3-49)
[2017-10-03 15:03] LABS: APPEARANCE CLEAR ((CLEAR)); BILIRUBIN NEGATIVE; BLOOD NEGATIVE; COLOR YELLOW ((YELLOW)); GLUCOSE (STRIP) NEGATIVE; KETONES 20; LEUKOCYTES TRACE; NITRITE NEGATIVE; PROTEIN (STRIP) NEGATIVE; SPECIFIC GRAVITY 1.006 (1.000-1.030); UROBILINOGEN 0.2 MG/DL (0.2-1.0)
[2017-10-03 15:46] LABS: BACTERIA RARE /HPF; EPITHELIAL CELLS 1+ /HPF; MUCUS TRACE /LPF; RED BLOOD CELLS NONE SEEN /HPF (0-5); UCUL ADDED? NO; WHITE BLOOD CELLS 0-5 /HPF (0-5)
[2017-10-03] MEDS ORDERED: ADULT LOW DOSE81 M1 PO (20:07)
[2017-10-03] MEDS ORDERED: CELEXA20 MG PO (20:08)
[2017-10-03 21:44] VITALS: BP 125/64
[2017-10-04] VITALS (7 sets, daily range): BP systolic 100–125; BP diastolic 54–61
[2017-10-04 05:59] LABS: HEMATOCRIT 37.2 % (36.0-46.0); MCH 27.5 PG (29.0-34.0); MCHC 33.3 G/DL (30.0-36.0); MCV 82.5 FL (83-99); PLATELET COUNT 179 K/uL (156-360); RBC DIS.WIDTH-CV 13.8 % (11.8-14.6); RBC DIS.WIDTH-SD 40.8 % (39-53); RED BLOOD COUNT 4.51 M/uL (3.80-5.20); WHITE BLOOD COUNT 6.3 K/uL (4.1-10.2)
[2017-10-04 06:19] LABS: HEMOGLOBIN 12.4 G/DL (11.9-15.5)
[2017-10-04 06:29] LABS: CHLORIDE 109 MEQ/L (99-109); CREATININE 0.7 MG/DL (0.6-1.3); GFR ESTIMATE (CALCULATED) > 59 mL/min/; GLUCOSE 86 mg/dL (70-99); POTASSIUM 3.7 MEQ/L (3.7-5.4); SODIUM 140 MEQ/L (136-147); UREA NITROGEN (BUN) 11 mg/dL (9-23)
[2017-10-05 03:29] VITALS: BP 106/60
[2017-10-05 07:37] VITALS: BP 126/66
[2017-10-05 10:25] LABS: C DIFF TOXIN NEGATIVE (NEGATIVE)
[2017-10-05 15:09] VITALS: BP 130/68
[2017-10-05 23:25] VITALS: BP 121/59
[2017-10-06 06:03] LABS: HEMATOCRIT 37.9 % (36.0-46.0); HEMOGLOBIN 12.4 G/DL (11.9-15.5); MCH 27.1 PG (29.0-34.0); MCHC 32.7 G/DL (30.0-36.0); MCV 82.8 FL (83-99); PLATELET COUNT 159 K/uL (156-360); RBC DIS.WIDTH-CV 13.8 % (11.8-14.6); RBC DIS.WIDTH-SD 41.3 % (39-53); RED BLOOD COUNT 4.58 M/uL (3.80-5.20); WHITE BLOOD COUNT 5.4 K/uL (4.1-10.2)
[2017-10-06 06:24] LABS: CHLORIDE 111 MEQ/L (99-109); CREATININE 0.7 MG/DL (0.6-1.3); GFR ESTIMATE (CALCULATED) > 59 mL/min/; GLUCOSE 83 mg/dL (70-99); POTASSIUM 3.3 MEQ/L (3.7-5.4); SODIUM 142 MEQ/L (136-147); UREA NITROGEN (BUN) 5 mg/dL (9-23)
[2017-10-06 07:20] VITALS: BP 108/59
[2017-10-06 16:10] VITALS: BP 157/73
[2017-10-07 00:28] VITALS: BP 115/58
[2017-10-07 06:35] LABS: HEMATOCRIT 38.8 % (36.0-46.0); HEMOGLOBIN 12.7 G/DL (11.9-15.5); MCH 26.6 PG (29.0-34.0); MCHC 32.7 G/DL (30.0-36.0); MCV 81.3 FL (83-99); PLATELET COUNT 183 K/uL (156-360); RBC DIS.WIDTH-CV 13.8 % (11.8-14.6); RBC DIS.WIDTH-SD 40.6 % (39-53); RED BLOOD COUNT 4.77 M/uL (3.80-5.20); WHITE BLOOD COUNT 6.1 K/uL (4.1-10.2)
[2017-10-07 07:02] LABS: CHLORIDE 111 MEQ/L (99-109); CREATININE 0.6 MG/DL (0.6-1.3); GFR ESTIMATE (CALCULATED) > 59 mL/min/; GLUCOSE 86 mg/dL (70-99); SODIUM 142 MEQ/L (136-147); UREA NITROGEN (BUN) 7 mg/dL (9-23)
[2017-10-07 07:55] VITALS: BP 120/70
[2017-10-07] MEDS ORDERED: FLAGYL500 MG PO (09:48)
[2017-10-07] MEDS ORDERED: LACTOBACILLUS1 EACH PO (10:02)
[2017-10-07] MEDS ORDERED: AUGMENTIN875 MG PO (10:22)
[2017-10-07] MEDS ORDERED: ZOFRAN4 MG PO (11:22)
[2017-10-07] MEDS ORDERED: PEPCID20 MG PO (11:24)
== END 2017-10-07 14:58 | disposition home or self-care (01) | DRG 392 ==
LOC: EME 13:08 → 2EAST 19:52 → EDOF 19:52 → ENRESERV 19:55 → 2EAST 21:20
PROVIDERS: Hospitalist; Internal Medicine
DX: K52.9 Noninfective gastroenteritis and colitis, unspecified (principal); L27.1 Localized skin eruption due to drugs and medicaments taken internally; T36.8X5A Adverse effect of other systemic antibiotics, initial encounter; E87.6 Hypokalemia; F41.9 Anxiety disorder, unspecified; K80.20 Calculus of gallbladder without cholecystitis without obstruction; J45.909 Unspecified asthma, uncomplicated; N28.1 Cyst of kidney, acquired; Z85.71 Personal history of Hodgkin lymphoma; Z85.3 Personal history of malignant neoplasm of breast; Z90.13 Acquired absence of bilateral breasts and nipples; Z92.21 Personal history of antineoplastic chemotherapy; Z79.82 Long term (current) use of aspirin
CPT/HCPCS: 74177; 76705; 80048; 80053; 81003; 83605; 85027; 87040; 87493; 94640; 94640 76; 96360; 96361; 99202; 99281; 99285; J0696; J0744; J1200; J1644; J1885; J2405; J2765; J3010; J7030; J7120; S0028; S0030

== ENCOUNTER 2017-10-18 17:07 | Observation (INO) | payer BC, OTHER ==
[~2017-10-18] VITALS: Ht 157.5 cm; Wt 85.2 kg
[~2017-10-18 17:07] MED LIST changes: +ADULT LOW DOSE81 M1 PO; +AUGMENTIN875 MG PO; +CELEXA20 MG PO; +FLAGYL500 MG PO; +LACTOBACILLUS1 EACH PO; +PEPCID20 MG PO; +ZOFRAN4 MG PO
[2017-10-18 17:54] LABS: HEMATOCRIT 43.3 % (36.0-46.0); MCH 27.7 PG (29.0-34.0); MCHC 34.6 G/DL (30.0-36.0); MCV 79.9 FL (83-99); PLATELET COUNT 276 K/uL (156-360); RBC DIS.WIDTH-CV 13.9 % (11.8-14.6); RBC DIS.WIDTH-SD 39.9 % (39-53); RED BLOOD COUNT 5.42 M/uL (3.80-5.20); WHITE BLOOD COUNT 10.7 K/uL (4.1-10.2)
[2017-10-18 18:06] LABS: CHLORIDE 107 mEq/L (99-109); POTASSIUM 3.6 mEq/L (3.7-5.4); SODIUM 138 mEq/L (136-147)
[2017-10-18 18:08] LABS: GLUCOSE 75 mg/dL (70-99); TOTAL PROTEIN 6.9 g/dL (6.4-8.3)
[2017-10-18 18:10] LABS: TOTAL BILIRUBIN 0.6 mg/dL (0.0-1.0)
[2017-10-18 18:12] LABS: ALKALINE PHOSPHATASE 82 IU/L (3-129); CREATININE 0.7 mg/dL (0.6-1.3); GFR ESTIMATE (CALCULATED) > 59 mL/min/
[2017-10-18 18:13] LABS: UREA NITROGEN (BUN) 10 mg/dL (9-23)
[2017-10-18 18:14] LABS: AST (GOT) 27 IU/L (2-34)
[2017-10-18 18:15] LABS: ALT (GPT) 30 IU/L (3-49); LIPASE 34 U/L (1.0-51.0)
[2017-10-18 18:16] LABS: TROP-I INTERPRETATION NEGATIVE; TROPONIN-I < 0.01 ng/mL (0.0-0.30)
[2017-10-18 18:40] LABS: APPEARANCE SL.HAZY ((CLEAR)); BILIRUBIN NEGATIVE; BLOOD NEGATIVE; COLOR YELLOW ((YELLOW)); GLUCOSE (STRIP) NEGATIVE; KETONES NEGATIVE; LEUKOCYTES MODERATE; NITRITE NEGATIVE; PROTEIN (STRIP) NEGATIVE; SPECIFIC GRAVITY 1.009 (1.000-1.030); UROBILINOGEN 0.2 MG/DL (0.2-1.0)
[2017-10-18 19:00] LABS: THYROTROPIN (TSH) 2.9 MIU/L (0.4-5.5)
[2017-10-18 19:04] LABS: BACTERIA RARE /HPF; EPITHELIAL CELLS RARE /HPF; MUCUS NONE SEEN /LPF; RED BLOOD CELLS 0-5 /HPF (0-5); UCUL ADDED? YES
[2017-10-18] MEDS ORDERED: REGLAN5 MG PO (20:54)
[2017-10-18 22:25] VITALS: BP 107/67
[2017-10-19 00:23] VITALS: BP 109/54
[2017-10-19 00:54] LABS: TROP-I INTERPRETATION NEGATIVE; TROPONIN-I < 0.01 ng/mL (0.0-0.30)
[2017-10-19 04:08] VITALS: BP 105/55
[2017-10-19 05:26] LABS: HEMATOCRIT 38.4 % (36.0-46.0); MCH 27.1 PG (29.0-34.0); MCHC 32.6 G/DL (30.0-36.0); MCV 83.3 FL (83-99); PLATELET COUNT 218 K/uL (156-360); RBC DIS.WIDTH-CV 14.3 % (11.8-14.6); RBC DIS.WIDTH-SD 43.1 % (39-53); RED BLOOD COUNT 4.61 M/uL (3.80-5.20)
[2017-10-19 05:27] LABS: HEMOGLOBIN 12.5 G/DL (11.9-15.5)
[2017-10-19 06:01] LABS: ALBUMIN 3.1 G/DL (3.2-4.8); ALKALINE PHOSPHATASE 62 IU/L (3-129); ALT (GPT) 20 IU/L (3-49); AST (GOT) 17 IU/L (2-34); CHLORIDE 109 MEQ/L (99-109); CREATININE 0.7 MG/DL (0.6-1.3); GFR ESTIMATE (CALCULATED) > 59 mL/min/; GLUCOSE 79 mg/dL (70-99); POTASSIUM 3.9 MEQ/L (3.7-5.4); SODIUM 140 MEQ/L (136-147); TOTAL BILIRUBIN 0.4 MG/DL (0.0-1.0); TOTAL PROTEIN 5.2 G/DL (6.4-8.3); UREA NITROGEN (BUN) 9 mg/dL (9-23)
[2017-10-19 06:02] LABS: TROP-I INTERPRETATION NEGATIVE; TROPONIN-I < 0.01 ng/mL (0.0-0.30)
[2017-10-19 08:00] VITALS: BP 94/50
[2017-10-19 08:01] VITALS: BP 83/50; BP 99/54
[2017-10-19 15:17] VITALS: BP 121/58
[2017-10-19 19:24] VITALS: BP 115/59
[2017-10-20 00:02] VITALS: BP 104/56
[2017-10-20 04:14] VITALS: BP 104/64
[2017-10-20 05:50] LABS: HEMATOCRIT 38.1 % (36.0-46.0); HEMOGLOBIN 12.5 G/DL (11.9-15.5); MCH 27.6 PG (29.0-34.0); MCHC 32.8 G/DL (30.0-36.0); MCV 84.1 FL (83-99); PLATELET COUNT 183 K/uL (156-360); RBC DIS.WIDTH-CV 14.6 % (11.8-14.6); RBC DIS.WIDTH-SD 44.5 % (39-53); RED BLOOD COUNT 4.53 M/uL (3.80-5.20); WHITE BLOOD COUNT 5.5 K/uL (4.1-10.2)
[2017-10-20 06:14] LABS: CHLORIDE 113 MEQ/L (99-109); CREATININE 0.6 MG/DL (0.6-1.3); GFR ESTIMATE (CALCULATED) > 59 mL/min/; GLUCOSE 80 mg/dL (70-99); SODIUM 142 MEQ/L (136-147); UREA NITROGEN (BUN) 6 mg/dL (9-23)
[2017-10-20 07:15] VITALS: BP 104/57
[2017-10-20] MEDS ORDERED: ESCITALOPRAM OX20 MG PO (10:05)
[2017-10-20] MEDS ORDERED: DOCUSATE SODIU100 MG PO (10:05)
[2017-10-20] MEDS ORDERED: METAMUCIL PACK3.4 GM PO (10:05)
[2017-10-20] MEDS ORDERED: CLONAZEPAM0.5 MG PO (10:06)
== END 2017-10-20 11:53 | disposition home or self-care (01) ==
LOC: EME 17:07 → 4SOUTH 20:19 → EDOF 20:19 → ENRESERV 20:42 → 4SOUTH 22:09
PROVIDERS: Emergency Medicine; Hospitalist; Nurse Practitioner Family; Physician Assistant
DX: R07.9 Chest pain, unspecified (principal); F41.8 Other specified anxiety disorders; K59.00 Constipation, unspecified; R42 Dizziness and giddiness; R93.5 Abnormal findings on diagnostic imaging of other abdominal regions, including retroperitoneum; Z85.71 Personal history of Hodgkin lymphoma; Z85.3 Personal history of malignant neoplasm of breast; J45.909 Unspecified asthma, uncomplicated; K21.9 Gastro-esophageal reflux disease without esophagitis; R61 Generalized hyperhidrosis; Z79.82 Long term (current) use of aspirin; I71.2 Thoracic aortic aneurysm, without rupture; Z90.12 Acquired absence of left breast and nipple; Z88.1 Allergy status to other antibiotic agents; Z88.8 Allergy status to other drugs, medicaments and biological substances
CPT/HCPCS: 70450; 71046; 71275; 74019; 74177; 80048; 80053; 81003; 82948; 83605; 83690; 84443; 84484; 85027; 87040; 87086; 87493; 87506; 93005; 94640; 94640 76; 99202; 99281; 99285; G0378; J0696; J1644; J2405; J7030; S0030